=== PATIENT | female | born 2000 | race African-American/Black ===

== ENCOUNTER 2022-07-06 20:10 | Outpatient (NON) | payer OTHER, SELFPAY | END 2022-07-06 20:11 | disposition home or self-care (01) | LOC: ANHLAB 20:11 | PROVIDERS: PCP Emergency Medicine; Visit Provider Emergency Medicine | DX: N89.8 Other specified noninflammatory disorders of vagina (principal) | CPT/HCPCS: 87491; 87591 ==

== ENCOUNTER 2022-07-12 14:49 | Outpatient (CLI) | payer OTHER, SELFPAY ==
[2022-07-12 15:35] LABS: Strep Group A RT-PCR NOT DETECTED (Negative)
[2022-07-12 15:46] LABS: Influenza A QL RT-PCR Negative (Negative); Influenza B QL RT-PCR Negative (Negative); SARS-CoV-2 RNA PCR Negative
== END 2022-07-12 14:50 | disposition home or self-care (01) ==
LOC: ANHLAB 14:51
PROVIDERS: PCP Emergency Medicine; Visit Provider Emergency Medicine
DX: Z20.822 Contact with and (suspected) exposure to COVID-19 (principal); J02.9 Acute pharyngitis, unspecified
CPT/HCPCS: 87636; 87651

== ENCOUNTER 2022-10-09 12:45 | Outpatient (CLI) | payer OTHER, SELFPAY ==
[2022-10-09 19:11] LABS: Basophils Percent Auto 0.3 % (0.2-1.2); Eosinophils Percent Auto 0.3 % (0-4.4); Hematocrit 35.1 % (37.0-47.0); Hemoglobin 11.4 g/dL (12.0-15.0); Lymphocytes Absolute Auto 2.04 K/mm3 (0.9-3.2); Lymphocytes Percent Auto 51.6 % (18.3-44.2); Mean Corpuscular HGB Conc 32.5 g/dl (32-36); Mean Corpuscular Hemoglobin 29.2 pg (26-34); Mean Platelet Volume 11.7 fl (7.4-10.4); Monocytes Absolute Auto 0.3 K/mm3 (0.1-0.6); Monocytes Percent Auto 7.1 % (2.6-8.5); Neutrophils Absolute Auto 1.6 K/mm3 (1.3-6.7); Neutrophils Percent Auto 40.7 % (45.5-73.1); Platelet Count Result 212 k/mm3 (150-375); Red Cell Distribution Width 12.1 % (11.5-14.5)
[2022-10-09 19:16] LABS: Alanine Aminotransferase 17 U/L (6-35); Albumin Level 4.1 g/dL (3.5-5.1); Alkaline Phosphatase 92 U/L (38-126); Anion Gap 6 mmol/L (8-16); Aspartate Amino Transferase 33 U/L (14-36); Bilirubin,Total 0.7 mg/dL (0.2-1.3); Blood Urea Nitrogen 11 mg/dL (7-17); Calcium 8.5 mg/dL (8.4-10.2); Carbon Dioxide 28 mmol/L (22-30); Chloride 103 mmol/L (98-107); Cholesterol 137 mg/dL (0-200); Estimated Glomerular Filt Rate > 60; Glucose 79 mg/dL (65-110); HDL Direct 47 mg/dL; Sodium 137 mmol/L (137-145); Triglycerides 31 mg/dL (<150)
[2022-10-09 19:17] LABS: Hemoglobin A1C 4.9 % (<5.7)
[2022-10-09 19:33] LABS: LDL Cholesterol Direct 73 mg/dL
[2022-10-09 20:01] LABS: Thyroid Stimulating Hormone Reflex 0.707 uIU/mL (0.465-4.68)
== END 2022-10-09 12:46 | disposition home or self-care (01) ==
LOC: ANHGOSHLAB 12:45
PROVIDERS: PCP Emergency Medicine; Visit Provider Emergency Medicine
DX: O99.019 Anemia complicating pregnancy, unspecified trimester (principal); Z3A.00 Weeks of gestation of pregnancy not specified; E66.3 Overweight; Z83.2 Family history of diseases of the blood and blood-forming organs and certain disorders involving the immune mechanism
CPT/HCPCS: 36415; 80053; 80061; 83036; 84443; 85025; 85660

== ENCOUNTER 2023-08-12 11:05 | Emergency (ER) | payer OTHER, SELFPAY ==
[2023-08-12 11:12] VITALS: BP 131/79; PULSE 103; RESP 16; TEMP 36.9; O2SAT 99
--- NOTE | 2023-08-12 12:09 | ED.FEMALEGU ---
HPI - Female Genitourinary General Chief complaint: Urogenital-Female Stated complaint: Yeast Infection symptoms Time Seen by Provider: 08/12/23 11:20 Source: patient Mode of arrival: ambulatory Limitations: no limitations History of Present Illness HPI Narrative: Glenn is a 23-year-old female patient presenting to the clinic today with complaints of possible yeast infection. She reports that her she is having some vaginal irritation-reports that her vagina does not feel right. Denies any itching or burning but states that there is just something off with her vagina. Denies any fever, chills, body aches, back pain, or abdominal pain. Reports that she has recently used sex toys and is concerned that she may have yeast or a bacterial vaginosis infection. Last intercourse was 6 months ago. Last menstrual period last month Related Data Allergies Allergy/AdvReac Type Severity Reaction Status Date / Time No Known Allergies Allergy Verified 08/12/23 11:18 Review of Systems Review of Systems: Pertinent positives per HPI. Patient denies any fever, chills, rash, headache, visual changes, dizziness, cough, runny nose, sore throat, shortness of breath, chest pain, palpitations, nausea, vomiting, diarrhea, constipation, abdominal pain, or any urinary issues. [facility] Past Medical History Medical History Anxiety Asthma History of hemorrhoids Hx of migraine headaches Seasonal allergies Social History Social History Smoking status: Never smoker Alcohol intake: never Substance use type: does not use Lack of Transportation: No Lack of Food: Never True Current Housing: I Have Housing Concerned About Future Housing: Decline to Answer Difficulty Paying Gas/Electric Bills: No Difficulty Paying for Meds: No Currently Unemployed: YES Education: Associate Degree Difficulty w/ Childcare or Family Care: No Comments At the time of my signature, I reviewed and agree with the nursing past medical, surgical, social, and family history. There is no relevant family history pertinent to the patient complaint. Exam Narrative: General: Well-developed, well nourished, in no apparent distress Head: Normocephalic, atraumatic. Cardio: Regular rate and rhythm, s1 and s2 normal, no murmur appreciated. Resp: Clear to auscultation bilaterally, no rhonchi, rales, wheezing or rubs. Abdomen: Soft, pliable, bowel sounds present in all quadrants, non-tender to palpation, no CVAT tenderness. : Pelvic exam performed with ([employer]) at bedside. Verbal consent obtained from patient. Normal external female genitalia without lesions or masses, Urinary meatus: patent without discharge, Vagina: No lesions, masses, clear vaginal discharge, Cervix: pink without mass, lesions, discharge, or tenderness. Adnexa: without palpable mass or tenderness. Course Course Emergency Course: Portions of this record may have been created with voice recognition software. Level of Care: Express Care Visit Vital Signs Vital signs: Vital Signs Temperature 36.9 C 08/12/23 11:12 Pulse Rate 103 H 08/12/23 11:12 Respiratory Rate 16 08/12/23 11:12 Blood Pressure 131/79 08/12/23 11:12 Pulse Oximetry 99 08/12/23 11:12 Oxygen Delivery Room Air 08/12/23 11:12 Temperature 36.9 C 08/12/23 11:12 Pulse Rate 103 H 08/12/23 11:12 Respiratory Rate 16 08/12/23 11:12 Blood Pressure 131/79 08/12/23 11:12 Pulse Oximetry 99 08/12/23 11:12 Oxygen Delivery Room Air 08/12/23 11:12 Vital signs reviewed MDM - Female Genitourinary MDM Narrative Medical decision making narrative: At the time of visit patient is resting comfortably on the exam table. Patient appears to be nontoxic. Labs: STI testing was sent for chlamydia, gonorrhea, Trichomonas, yeast, and bacterial vaginosis. Anne
[2023-08-12 20:23] LABS: Trichomonas Vag PCR NOT DETECTED (NOT DETECTE)
[2023-08-12 20:45] LABS: Chlamydia trachomatis NOT DETECTED (NOT DETECTE); Neisseria gonorrhoeae PCR NOT DETECTED (NOT DETECTE)
[2023-08-15 03:24] LABS: Bacterial Vaginosis Positive (Negative)
== END 2023-08-12 12:32 | disposition home or self-care (01) ==
PROVIDERS: Emergency Provider Nurse Practitioner Family; PCP Emergency Medicine
DX: N89.8 Other specified noninflammatory disorders of vagina (principal)
CPT/HCPCS: 81003; 81025; 81513; 87070; 87491; 87591; 87661; 99214; G0463